=== PATIENT | female | born 1965 | race African-American/Black ===

== ENCOUNTER 2025-05-12 17:59 | Emergency (ER) | payer MEDICAID, OTHER ==
[~2025-05-12] VITALS: Ht 162.6 cm; Wt 78.6 kg
[2025-05-12] MEDS: SODIUM CHLORIDE 0.9% 1,000 ML IV ONE (18:15)
[2025-05-12] MEDS: InsuLIN REG 1unit/0.01ml Soln (100units/ml) SC ONE (18:45)
[2025-05-12 18:56] LABS: Hematocrit 39.5 % (36.0-46.0); Hemoglobin 13.5 g/dL (12.2-16.2); Mean Corpuscular Hemoglobin 29.9 pg (28.0-32.0); Mean Corpuscular Volume 87.6 fL (80.0-100.0); Nucleated Red Blood Cells % 0.0 %
[2025-05-12 19:17] LABS: Alanine Aminotransferase 25 U/L (7-40); Albumin 4.5 g/dL (3.2-4.8); Alkaline Phosphatase 69 U/L (46-116); Anion Gap 10 (5-15); BUN/Creatinine Ratio 10.4 (10.0-20.0); Bilirubin, Total 0.3 mg/dL (0.2-1.0); Blood Urea Nitrogen 11 mg/dL (9-23); Calcium 9.6 mg/dL (8.7-10.4); Carbon Dioxide 25 mmol/L (20-31); Chloride 100 mmol/L (98-107); Magnesium 2.1 mg/dL (1.6-2.6); Potassium 4.1 mmol/L (3.5-5.1); Total Protein 7.6 g/dL (5.7-8.2)
[2025-05-12 19:36] LABS: Sodium 135 mmol/L (136-145)
[2025-05-12 19:37] LABS: Glucose 412 mg/dL (74-106)
--- NOTE | 2025-05-12 19:47 | ED.PDOC ---
History of Present Illness HPI Comments 60 y/o F presents with 1x week history of bilateral feet and hand tingling sensation and left shoulder discomfort. She states on also checking and noticing her blood glucose being elevated at home, today, in the 300's range. Denies any polyuria, polydipsia, and polyphagia. Chief Complaint: Lower Extremity Time Seen by MD: 18:30 Reviewed Notes: Nurses Notes, Medications, Allergies Allergies: Coded Allergies: NO KNOWN ALLERGIES (Unverified , 05/12/25) Home Meds Active Scripts Insulin Aspart Protamine & Asp (Insulin Aspart Protamine/ (70-30) 100 Unit/ml) 1 Inj Inj, 4 UNITS SC BID for 90 Days, #120 INJ 3 Refills Prov:ANGIE SPRINGER MD 05/12/25 Information Source: Patient Mode of Arrival: Ambulatory Severity: Moderate Timing: Days Duration: Since onset Prehospital treatment: None Past Medical History PAST MEDICAL HISTORY: DM Surgical History: Denies all surgeries RISK CONTROL SPECIALIST History: No Pertinent RISK CONTROL SPECIALIST History Family History Family History: Unknown Social History Smoker: Non-Smoker Alcohol: Denies ETOH Use Drugs: Denies Drug Use Lives In: Home All Other Systems: Reviewed and Negative (Comprehensive review of systems are negative unless stated in HPI) Physical Exam General Appearance: Mild Distress, Normal HEENT: Normal ENT Inspection, Pharynx Normal, TMs Normal Neck: Full Range of Motion, Non-Tender, Normal, Normal Inspection Respiratory: Chest Non-Tender, Lungs Clear, No Accessory Muscle Use, No Respiratory Distress, Normal Breath Sounds Cardiovascular: No Edema, No JVD, No Murmur, No Gallop, Normal Peripheral Pulses, Regular Rate/Rhythm Breast Exam: Deferred Gastrointestinal: No Organomegaly, Non Tender, No Pulsatile Mass, Normal Bowel Sounds, Soft Genitalia: Deferred Pelvic: Deferred Rectal: Deferred Extremities: No calf tenderness, Normal capillary refill, Normal inspection, Normal range of motion, Non-tender, No pedal edema Musculoskeletal : Apperance: Normal Neurologic: Alert, utility pipe layer II-XII nml as Tested, No Motor Deficits, Normal Affect, Normal Mood, No Sensory Deficits Cerebellar Function: Normal Reflexes: Normal Skin: Dry, Normal Color, Warm Lymphatic: No Adenopathy Was a procedure done? Was a procedure done?: No Differential Dx Considerations may include: hyperglycemia, dehydration, electrolyte imbalance, viral syndrome, among others X-Ray, Labs, Meds, VS Vital Signs Date Time Temp Pulse Resp B/P (MAP) Pulse Ox O2 Delivery O2 Flow Rate FiO2 05/12/25 21:30 97.6 78 18 157/96 (116) 98 97.6 05/12/25 21:30 Room Air* 0 21 05/12/25 19:46 83 05/12/25 18:01 97.8 98 16 156/81 95 97.8 Lab Test 05/12/25 21:24 05/12/25 19:03 05/12/25 18:34 05/12/25 18:30 Range/Units POC Glucose 301 H 405 *H 70-106 mg/dl White Blood Count 7.1 4.4-10.8 10^3/uL Red Blood Count 4.50 4.0-5.20 10^6/uL Hemoglobin 13.5 12.2-16.2 g/dL Hematocrit 39.5 36.0-46.0 % Mean Corpuscular Volume 87.6 80.0-100.0 fL Mean Corpuscular Hemoglobin 29.9 28.0-32.0 pg Mean Corpuscular Hemoglobin Concent 34.1 32.0-36.0 g/dL Red Cell Distribution Width 12.9 11.8-14.3 % Platelet Count 276 140-450 10^3/uL Mean Platelet Volume 9.8 6.9-10.8 fL Neutrophils (%) (Auto) 69.6 37.0-80.0 % Lymphocytes (%) (Auto) 21.0 10.0-50.0 % Monocytes (%) (Auto) 7.2 0.0-12.0 % Eosinophils (%) (Auto) 1.3 0.0-7.0 % Basophils (%) (Auto) 0.9 0.0-2.0 % Neutrophils # (Auto) 4.9 1.6-8.6 10 ^3/uL Lymphocytes # (Auto) 1.5 0.4-5.4 10 ^3/uL Monocytes # (Auto) 0.5 0-1.3 10 ^3/uL Eosinophils # (Auto) 0.1 0-0.8 10 ^3/uL Basophils # (Auto) 0.1 0-0.2 10 ^3/uL Nucleated Red Blood Cells 0.0 % Sodium Level 135 L 136-145 mmol/L Potassium Level 4.1 3.5-5.1 mmol/L Chloride Level 100 98-107 mmol/L Carbon Dioxide Level 25 20-31 mmol/L Anion Gap 10 5-15 Blood Urea Nitrogen 11 9-23 mg/dL Creatinine 1.06 H 0.550-1.02 mg/dL Glomerular Filtration Rate Calc 59 >90 mL/min BUN/Creatinine Ratio 10.4 10.0-20.0 Serum Glucose 412 *H 74-106 mg/dL Calcium Level 9.6 8.7-10.4 mg/dL Magnesium Level 2.1 1.6-2.6 mg/dL Total Bilirubin 0.3 0.2-1.0 mg/dL Aspartate Amino Transferase (AST) 14 13-40 U/L Alanine Aminotransferase (ALT) 25 7-40 U/L Alkaline Phosphatase 69 46-116 U/L Total Protein 7.6 5.7-8.2 g/dL Albumin 4.5 3.2-4.8 g/dL Blood Gas Specimen Type Venous Blood Gas Sample Site Vbg - n/a Blood Gas Patient Temperature 37.0 Arterial Blood Date Drawn [id number] Ricardo Test N/a Venous Blood pH 7.440 H 7.320-7.430 Venous Blood pCO2 at Patient Temp 36.1 L 38.0-54.0 mmHg Venous Blood pO2 at Patient Temp 41.0 23.0-48.0 mmHg Venous Blood HCO3 24.0 22.0-29.0 mmol/L Venous Blood Base Excess 0.3 -2.0-3.0 mmol/L Blood Gas Modality Room air FiO2 % 21.0 Current Medications Medications (Trade) Dose Ordered Sig/Rene Route Start Time Stop Time Status Last Admin Sodium Chloride 1,000 ml @ 1,000 mls/hr Q1H ONCE IV 05/12/25 18:15 05/12/25 19:14 DC 05/12/25 18:15 Insulin Human Regular (InsuLIN R) 2 units ONCE ONCE SC 05/12/25 18:45 05/12/25 18:46 DC 05/12/25 18:45 Time of 1ST Reevaluation: 19:00 Reevaluation 1ST: Unchanged Patient Education/Counseling: Diagnosis, Treatment, Need For Follow Up Family Education/Counseling: No Family Present SEPSIS Sepsis Screen Date sepsis recognized/suspect: May 12, 2025 Time Sepsis recognized/suspect: 1801 Recent Procedure: No On Antibiotic Therapy: No Respiratory Rate >20: No Heart Rate >90: Yes Temp<36 C (96.8 F) or >38.3 C: No SBP <90 or MAP <65 mmHG: No New Acute Mental Status Change: No Is the patient on CPAP, BIPAP,: No Physician Orders Check Blood Glucose (05/12/25 18:06) Venous Blood Gas (05/12/25 18:06) Vital Signs Date Time Temp Pulse Resp B/P (MAP) Pulse Ox O2 Delivery O2 Flow Rate FiO2 05/12/25 21:30 97.6 78 18 157/96 (116) 98 97.6 05/12/25 21:30 Room Air* 0 21 05/12/25 19:46 83 05/12/25 18:01 97.8 98 16 156/81 95 97.8 Laboratory Tests Test 05/12/25 18:34 White Blood Count 7.1 10^3/uL (4.4-10.8) Medications Medications Dose Ordered Sig/Rene Route Start Time Stop Time Status Last Admin Dose Admin Insulin Human Regular 2 units ONCE ONCE SC 05/12/25 18:45 05/12/25 18:46 DC 05/12/25 18:45 Sodium Chloride 1,000 ml @ 1,000 mls/hr Q1H ONCE IV 05/12/25 18:15 05/12/25 19:14 DC 05/12/25 18:15 Departure 1 Departure Time of Disposition: 21:00 Impression: Primary Impression: Type 2 diabetes mellitus with hyperglycemia Additional Impression: Peripheral neuropathy Disposition: HOME / SELF CARE / HOMELESS Condition: Stable e-Prescriptions Insulin Aspart Protamine & Asp (Insulin Aspart Protamine/ (70-30) 100 Unit/ml) 1 Inj Inj 4 UNITS SC BID for 90 Days, #120 INJ 3 Refills Prov: ANGIE SPRINGER MD 05/12/25 Discharged With: Self Critical Care Note Critical Care Time?: No Stability Stability form required: No Heart Score Heart Score: Heart Score Response (Comments) Value History N/A 0 EKG N/A 0 Age N/A 0 Risk Factors N/A 0 Troponin N/A 0 Total 0 I personally scribed for ANGIE SPRINGER MD ([email or web address]) on 05/12/25 at 19:47. Electronically submitted by Patel Ernst [email or web address]). ANGIE SPRINGER MD May 12, 2025 19:47
--- NOTE | 2025-05-12 19:58 | ECG ---
[facility] Test Date: 2025-05-12 Test Time: 19:46:45 Pat Name: WICHO MANN Department: ED Room: Gender: F Paraffiner: : [id number] Requested By: ANGIE SPRINGER Order Number: [id number] Reading MD: Christopher Martinez Measurements Intervals [place] Rate: 83 P: 66 OK: 191 QRS: 59 QRSD: 93 T: 53 QT: 382 QTc: 449 Interpretive Statements Sinus rhythm Electronically Signed On 05-13-2025 15:24:54 PDT by Christopher Martinez Please click the below link to view image of tracing.
[2025-05-12] MEDS ORDERED: INSU1INJ26 SC (20:30)
[2025-05-12 21:30] VITALS: BP 157/96; PULSE 78; RESP 18; TEMP 97.6; O2SAT 98
== END 2025-05-12 21:45 | disposition home or self-care (01) ==
LOC: ER 17:59
DX: E11.65 Type 2 diabetes mellitus with hyperglycemia (principal); E11.21 Type 2 diabetes mellitus with diabetic nephropathy; Z79.899 Other long term (current) drug therapy
CPT/HCPCS: 36415; 36600; 80053; 82805; 82947; 83735; 85025; 93005; 96360; 96372; 99284; J1815; J7030; 82962